=== PATIENT | female | born 1945 | race Caucasian/White ===

== ENCOUNTER 2016-08-15 04:48 | Emergency (ER) | payer MEDICARE ==
[~2016-08-15] VITALS: Ht 167.6 cm; Wt 98.6 kg
[~2016-08-15 04:48] MED LIST: CIPR750T10 PO; KETO10 PO; LORT7.5T3 PO; LORTA5 PO; Z.0.NO CURRENT MEDS; ZOFR4TAB3 SL
[2016-08-15 04:56] VITALS: BP 160/83; PULSE 90; RESP 18; TEMP 98; O2SAT 97
[2016-08-15] MEDS ORDERED: LEVO.05 PO (05:03)
[2016-08-15] MEDS ORDERED: LEXA5TAB PO (05:03)
[2016-08-15] MEDS ORDERED: EFIN1SOL TOPICAL (05:04)
[2016-08-15] MEDS ORDERED: TETANUS/DIPHTHERIA TOXOID ADULT 0.5 ML VIAL IM ONE (05:30)
--- NOTE | 2016-08-15 05:32 | PD ---
HPI Chief Complaint: Laceration/Skin Injury Time Seen by Provider: 05:28 Travel History International Travel<30 days: No Contact w/Intl Traveler<30days: No Traveled to known affect area: No History of Present Illness HPI 71 year-old female presents to the emergency department by private transportation for evaluation of laceration sustained to the right great toe last evening. Patient states that she dropped a jar off the counter onto hard tile floor last evening and a shard of glass lacerated the right great toe. Patient states that she tried to clean the laceration however the site continued to bleed so due to the ongoing throbbing of the foot and concerned that she may need sutures she presents now for further evaluation. Patient states the injury occurred at 7 PM. Patient states tetanus status is greater than 5 years. Patient denies other concerns or complaints or other injuries. Patient rates her toe pain at the first MCP 6/10 in intensity. PFSH Past Medical History Narrative Medical Depression hypothyroidism ovarian cyst tonsillectomy eye surgery; no tobacco use ; nursing notes reviewed Depression: Yes Kidney Stones: Yes Thyroid Disease: Yes (HYPOTHYROIDISM) Tetanus Vaccination: > 5 Years Influenza Vaccination: Yes ?: Not Menopausal: Yes : 1 Para: 1 Ovarian Cysts: Yes Past Surgical History Eye Surgery: Yes (BILATERAL CATARACTS) Hysterectomy: Yes Tonsillectomy: Yes Social History Alcohol Use: No Tobacco Use: No Substance Use: No Allergies-Medications (Allergen,Severity, Reaction): Coded Allergies: Demerol (Verified Allergy, Unknown, 08/15/16) Penicillin (Verified Allergy, Unknown, 08/15/16) Reported Meds & Prescriptions Reported Meds & Active Scripts Active Reported Jublia Topical (Efinaconazole Topical) 10% Soln 1 Applic TOPICAL DAILY Apply to toenails Synthroid (Levothyroxine Sodium) 50 Mcg Tab 50 Mcg PO DAILY Lexapro (Escitalopram Oxalate) 5 Mg Tab 5 Mg PO HS Review of Systems Except as stated in HPI: all other systems reviewed are Neg Physical Exam Narrative Gen.: Well-developed well-nourished female in no acute distress no respiratory distress Extremity, attention right foot: 2 cm linear laceration with good wound edge approximation overlying the medial aspect of the right great toe at the MCP. No active bleeding tenderness to palpation about the wound site no palpable foreign body. Increased pain with attempted range of motion. Capillary refill brisk and less than 2 seconds; proximally dorsalis pedis pulse is 2+ to palpation. Data Data Last Documented VS Vital Signs Date Time Temp Pulse Resp B/P Pulse Ox O2 Delivery O2 Flow Rate FiO2 08/15/16 04:56 98.0 90 18 160/83 97 Orders Toe (Min 2vws) (08/15/16 ) Wound Care (08/15/16 05:28) Tetanus/Diphtheria Tox Adult (Tetanus/Di (08/15/16 05:30) Lidocaine Pf 1% Inj (Xylocaine-Mpf 1% In (08/15/16 06:15) MDM Medical Decision Making Medical Screen Exam Complete: Yes Emergency Medical Condition: Yes Medical Record Reviewed: Yes Interpretation(s) Last Impressions Toe X-Ray 08/15/16 0000 Signed Impressions: Service Date/Time: Monday, August 15, 2016 06:05 - CONCLUSION: 1. There is no evidence of acute fracture. Lb Mccullough MD Differential Diagnosis Laceration, neurovascular tendon injury, retained foreign body, fracture Narrative Course Tetanus status updated, wound site cleansed, imaging studies ordered Procedures Procedure Narrative LACERATION LOCATION: Right great toe LENGTH: 2 cm NUMBER OF STITCHES/ANDREW: 3 REPAIR: The area of the laceration was prepped with Betadine and sterilely draped. The laceration was infiltrated with 1% lidocaine plain. The wound was copiously irrigated and explored without evidence of foreign body, tendon injury or neurovascular injury. The wound was closed using 5-0 nylon. This was a single layer repair. A sterile dressing was applied. The patient was advised to keep the dressing clean and dry. Patient tolerated the procedure well. Diagnosis Primary Impression: Toe laceration Qualified Code: S91.111A - Laceration of right great toe without foreign body present or damage to nail, initial encounter Referrals: Primary Care Physician 2 days Patient Instructions: General Instructions Additional Instructions: Keep wound site clean and dry Change dressing daily Wound check at 2 days; suture removal at 7-10 days Take acetaminophen or ibuprofen per package directions as needed for pain Return to the emergency department for any concerns or change in condition Disposition: 01 DISCHARGE HOME Condition: Stable Rivka Khan MD August 15, 2016 05:32
[2016-08-15] MEDS ORDERED: LIDOCAINE HCL 1% PF 30 ML VIAL INFIL ONE (06:15)
--- NOTE | 2016-08-15 06:33 | RADHPO ---
EXAM DATE/TIME: 08/15/2016 06:05 [facility] COMPARISON: No previous studies available for comparison. INDICATIONS : Toe injury. Pain and swelling great toe. MEDICAL HISTORY : None. SURGICAL HISTORY : None. ENCOUNTER: Initial ACUITY: 1 day PAIN SCORE: 6/10 LOCATION: Right lateral FINDINGS: Examination of the first digit of the right foot demonstrates no evidence of fracture or dislocation. No radiopaque foreign bodies are seen. The soft tissues are intact. CONCLUSION: 1. There is no evidence of acute fracture. Lb Mccullough MD on August 15, 2016 at 6:31 Board Certified Radiologist. This report was verified electronically.
== END 2016-08-15 06:57 | disposition home or self-care (01) ==
LOC: PHED 04:48
DX: S91.111A Laceration without foreign body of right great toe without damage to nail, initial encounter (principal); E03.9 Hypothyroidism, unspecified; F32.9 Major depressive disorder, single episode, unspecified; Z23 Encounter for immunization; W25.XXXA Contact with sharp glass, initial encounter; Y93.89 Activity, other specified; Y92.010 Kitchen of single-family (private) house as the place of occurrence of the external cause; Y99.8 Other external cause status
CPT/HCPCS: 12001; 73660; 90471; 90714